=== PATIENT | male | born 1935 | race Caucasian/White ===

== ENCOUNTER 2018-05-04 10:42 | Outpatient (CLI) | payer MEDICARE, OTHER | END 2018-05-04 23:59 | disposition home or self-care (01) | LOC: WOU 10:42 | PROVIDERS: ATTEND Nurse Practitioner Acute Care | PROC: 02HV33Z Insertion of Infusion Device into Superior Vena Cava, Percutaneous Approach (ICD-10-PCS; principal; 2018-05-04) | DX: Z45.2 Encounter for adjustment and management of vascular access device (principal); C80.1 Malignant (primary) neoplasm, unspecified; J18.9 Pneumonia, unspecified organism; J91.8 Pleural effusion in other conditions classified elsewhere | CPT/HCPCS: 36569; 71045; C1751 ==